=== PATIENT | female | born 1955 | race Caucasian/White ===

== ENCOUNTER 2016-06-02 17:14 | Observation (INO) | payer BC ==
--- NOTE | 2016-06-02 18:14 | ER Document Report ---
ED Medical Screen (RME) - General Stated Complaint: POSSIBLE SYNCOPE Notes: Her Mother Fall in Another Room and Went Back and Found Her Unresponsive. States Son Did CPR on Patient. Took pt in care to PCP, whose staff pulled her out of car and laid her on sidewalk. EMS then called to scene. Patient had pulses and good blood pressure at the scene. Transported to [facility] for evaluation. 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 Patient complains of pain to the head, neck, shoulders and back. I have greeted and performed a rapid initial assessment of this patient. A comprehensive ED assessment and evaluation of the patient, analysis of test results and completion of the medical decision making process will be conducted by additional ED providers. - Related Data Allergies/Adverse Reactions: ciprofloxacin [From Cipro] Allergy (Verified 06/02/16 18:15) codeine Allergy (Verified 06/02/16 18:15) morphine Allergy (Verified 06/02/16 18:15) Penicillins Allergy (Verified 06/02/16 18:15) Sulfa (Sulfonamide Antibiotics) Allergy (Verified 06/02/16 18:15) Physical Exam - Vital signs Vitals: Temp Pulse Resp BP Pulse Ox 98.1 F 75 18 102/61 96 06/02/16 18:00 06/02/16 18:00 06/02/16 18:00 06/02/16 18:00 06/02/16 18:00 - HEENT Head: Normocephalic Eyes: Normal Extraocular movements intact: Yes Pupils: PERRL Course - Vital Signs Vital signs: Temp Pulse Resp BP Pulse Ox 98.1 F 75 18 102/61 96 06/02/16 18:00 06/02/16 18:00 06/02/16 18:00 06/02/16 18:00 06/02/16 18:00
--- NOTE | 2016-06-02 19:09 | ER Document Report ---
ED Syncope and Near Syncope - General Chief Complaint: Probable Seizure Stated Complaint: POSSIBLE SYNCOPE Time Seen by Provider: 06/02/16 18:07 Mode of Arrival: Medic Information source: Patient, Relative - son Notes: 60 yo smoker female was in the closet folding and putting away clothes when her son heard a loud crash. She was face down on the floor. He rolled her over, she was pale and bluish color, he gave mouth to mouth, and when he started chest compression she recoiled but was not fully conscious. Next thing she remembers she was on the sofa. she had had episodes like this in the past and was told that she had "brain circuit problem, low bp" Had MRI in [facility]. MOved here 3 months ago. Also c/o chronic neck, upper back pain, anxiety, and exertional retrosternal chest pain that lasts up to an hour when she tries to do anything around the house, resolves when she lays down to rest. TRAVEL OUTSIDE OF THE [place] IN LAST 30 DAYS: No - Related Data Allergies/Adverse Reactions: ciprofloxacin [From Cipro] Allergy (Verified 06/02/16 18:15) codeine Allergy (Verified 06/02/16 18:15) morphine Allergy (Verified 06/02/16 18:15) Penicillins Allergy (Verified 06/02/16 18:15) Sulfa (Sulfonamide Antibiotics) Allergy (Verified 06/02/16 18:15) Home Medications: Current Home Medications Acyclovir [Acyclovir 400 mg Tablet] 1 tab PO BID 06/03/16 [History] Duloxetine HCl [Cymbalta] 1 tab PO DAILY 06/03/16 [History] Estropipate 3 mg PO DAILY 06/03/16 [History] Midodrine HCl [Proamatine 5 Mg Tablet] 5 mg PO BID 06/03/16 [History] Trazodone HCl [Desyrel] 100 mg PO DAILY 06/03/16 [History] Past Medical History - General Information source: Patient - Social History Smoking Status: Current Every Day Smoker Chew tobacco use (# tins/day): No Frequency of alcohol use: Rare Drug Abuse: None Lives with: Spouse/Significant other Family History: Reviewed & Not Pertinent Patient has suicidal ideation: No Patient has homicidal ideation: No Renal/ Medical History: Denies: Hx Peritoneal Dialysis Psychiatric Medical History: Reports: Hx Anxiety Surgical Hx: Negative Review of Systems - Review of Systems Constitutional: No symptoms reported EENT: No symptoms reported Cardiovascular: See HPI Respiratory: No symptoms reported Gastrointestinal: No symptoms reported Genitourinary: No symptoms reported Female Genitourinary: No symptoms reported Musculoskeletal: No symptoms reported Skin: No symptoms reported Hematologic/Lymphatic: No symptoms reported Neurological/Psychological: See HPI Physical Exam - Vital signs Vitals: Temp Pulse Resp BP Pulse Ox 98.1 F 75 18 102/61 96 06/02/16 18:00 06/02/16 18:00 06/02/16 18:00 06/02/16 18:00 06/02/16 18:00 Interpretation: Normal - General General appearance: Appears well, Alert In distress: None - HEENT Head: Normocephalic, Atraumatic Eyes: Normal Extraocular movements intact: Yes Pupils: PERRL Tympanic membrane: Normal Pharynx: Normal Neck: Supple - non tender - Respiratory Respiratory status: No respiratory distress Chest status: Nontender Breath sounds: Normal Chest palpation: Normal - Cardiovascular Rhythm: Regular Heart sounds: Normal auscultation Murmur: No - Abdominal Inspection: Normal Distension: No distension Bowel sounds: Normal Tenderness: Nontender. No: Tender Organomegaly: No organomegaly - Back Back: Normal, Nontender. No: CVA tenderness - Extremities General upper extremity: Normal inspection, Nontender, Normal color, Normal ROM , Normal temperature General lower extremity: Normal inspection, Nontender, Normal color, Normal ROM , Normal temperature, Normal weight bearing. No: Blair's sign - Neurological Neuro grossly intact: Yes Cognition: Normal Orientation: AAOx4 Haiku Coma Scale Eye Opening: Spontaneous Moris Coma Scale Verbal: Oriented Moris Coma Scale Motor: Obeys Commands Haiku Coma Scale Total: 15 Speech: Normal Motor strength normal: LUE, RUE, LLE, RLE Sensory: Normal - Psychological Associated symptoms: Normal affect, Normal mood - Skin Skin Temperature: Warm Skin Moisture: Dry Skin Color: Normal Skin irregularity: negative: Rash Course - Re-evaluation Re-evalutation: 06/02/16 19:[address] barkley for adding head CT and other work up. 06/02/16 22:[address] barkley, pt is c/o persistant RICO, now has chest heaviness, d dimer added. vitals stable at this time. meds ordered for the generalized back, neck and headache. 06/02/16 22:14 Patient relates that this chest heaviness has been intermittent sporadically for a month. The episodes last for 15-20 minutes, it is retrosternal, and she has to lay down to make it go away. It usually starts when she is up doing activities like sweeping or putting dishes up. The neck and back pain that she has she is asking medication for this time is chronic. 06/02/16 22:[address] Barkley, the second troponin and d-dimer results and I will call to get the patient admitted for syncope and chest pain. 06/02/16 23:07 2nd troponin have not been drawn. lab here and will draw for me. 06/03/16 01:[address] ya for admission chest pain, syncope. telemetry/observation., - Vital Signs Vital signs: Temp Pulse Resp BP Pulse Ox 97.5 F 79 18 103/57 L 96 06/03/16 04:42 06/03/16 04:42 06/03/16 04:42 06/03/16 04:42 06/03/16 04:42 - Laboratory Result Diagrams: 06/02/16 19:15 06/02/16 19:15 Laboratory results interpreted by me: 06/02/16 06/02/16 06/02/16 19:15 19:15 23:45 D-Dimer 0.51 H Creatine Kinase 24 L 29 L Total Protein 6.1 L Discharge - Discharge Clinical Impression: Upper back pain Syncope Qualifiers: Syncope type: unspecified Qualified Code(s): R55 - Syncope and collapse Chest pain Qualifiers: Chest pain type: other chest pain Qualified Code(s): R07.89 - Other chest pain Headache Qualifiers: Headache type: unspecified Headache chronicity pattern: unspecified pattern Intractability: not intractable Qualified Code(s): R51 - Headache Condition: Stable Disposition: HOME, SELF-CARE Admitting Provider: Hospitalist Unit Admitted: Telemetry
[2016-06-02] MEDS ORDERED: NORMAL SALINE 1000 ML 1,000 ML IV ONE (19:31)
[2016-06-02 19:35] LABS: ABSOLUTE BASOPHILS # (AUTO) 0.1 10^3/uL (0.0-0.2); ABSOLUTE EOSINOPHILS # (AUTO) 0.2 10^3/uL (0.0-0.6); ABSOLUTE LYMPHOCYTES (AUTO) 3.4 10^3/uL (0.5-4.7); ABSOLUTE MONOCYTES (AUTO) 0.7 10^3/uL (0.1-1.4); ABSOLUTE NEUT (AUTO) 4.3 10^3/uL (1.7-8.2); BASOPHILS % (AUTO) 0.7 % (0-2); EOSINOPHILS % (AUTO) 2.7 % (0-6); HEMATOCRIT 38.6 % (36.0-47.0); HGB HCT DIFFERENCE 0.4; LYMPHOCYTES % (AUTO) 39.2 % (13-45); MEAN CORPUSCULAR HEMOGLOBIN 28.5 pg (27.0-33.4); MEAN CORPUSCULAR HGB CONC 33.6 g/dL (32.0-36.0); MEAN CORPUSCULAR VOLUME 85 fl (80-97); MONOCYTES % (AUTO) 7.7 % (3-13); RED BLOOD COUNT 4.54 10^6/uL (3.72-5.28); RED CELL DISTRIBUTION WIDTH 13.2 % (11.5-14.0); SEGMENTED NEUTROPHILS % (AUTO) 49.7 % (42-78); WHITE BLOOD COUNT 8.6 10^3/uL (4.0-10.5)
[2016-06-02 19:57] LABS: ALANINE AMINOTRANSFERASE 26 U/L (9-52); ALBUMIN 3.5 g/dL (3.5-5.0); ALKALINE PHOSPHATASE 108 U/L (38-126); ANION GAP 9 (5-19); ASPARTATE AMINO TRANSFERASE 15 U/L (14-36); BILIRUBIN,TOTAL 0.3 mg/dL (0.2-1.3); BLOOD UREA NITROGEN 10 mg/dL (7-20); CALCIUM 9.8 mg/dL (8.4-10.2); CARBON DIOXIDE 29 mmol/L (22-30); CHLORIDE 102 mmol/L (98-107); CREATINE KINASE 24 U/L (30-135); CREATININE RESULT 0.75 mg/dL (0.52-1.25); GLUCOSE 90 mg/dL (75-110); LIPASE 80.7 U/L (23-300); POTASSIUM 4.5 mmol/L (3.6-5.0); SODIUM 139.9 mmol/L (137-145); TOTAL PROTEIN 6.1 g/dL (6.3-8.2)
[2016-06-02 19:59] LABS: ALCOHOL < 10 mg/dL (NONE DETECTED)
[2016-06-02 20:31] LABS: CREATINE KINASE MB < 0.22 ng/mL (<4.55); TROPONIN I < 0.012 ng/mL
[2016-06-02 21:34] LABS: APPEARANCE,URINE SLIGHTLY-CLOUDY; BILIRUBIN,URINE NEGATIVE (NEGATIVE); GLUCOSE, URINE NEGATIVE (NEGATIVE); KETONES,URINE NEGATIVE (NEGATIVE); LEUKOCYTE ESTERASE,URINE NEGATIVE (NEGATIVE); NITRITE,URINE NEGATIVE (NEGATIVE); PROTEIN,URINE NEGATIVE (NEGATIVE); URINE SPECIFIC GRAVITY 1.012; UROBILINOGEN,URINE NEGATIVE mg/dL (<2.0)
[2016-06-02 21:58] LABS: URINE BARBITURATES SCREEN NEGATIVE; URINE METHADONE SCREEN NEGATIVE; URINE OPIATES LOW NEGATIVE; URINE PHENCYCLIDINE SCREEN NEGATIVE
[2016-06-02] MEDS ORDERED: KETOROLAC TROMETHAMINE INJ/PF 30 MG/1 ML SDV IV ONE (22:06)
[2016-06-02] MEDS ORDERED: DIPHENHYDRAMINE HCL 50 MG/ML VIAL IV ONE (22:07)
[2016-06-02] MEDS ORDERED: PROCHLORPERAZINE EDISYLATE INJ 10 MG/2 ML VIAL IV ONE (22:07)
[2016-06-02] MEDS ORDERED: ASPIRIN 81 MG TABLET, CHEWABLE PO ONE (22:17)
[2016-06-03] MEDS ORDERED: LACTULOSE SYRUP 20 GM/30 ML UDCUP PO ONE (01:37)
[2016-06-03] MEDS ORDERED: HALOPERIDOL LACTATE INJ 5 MG/1 ML VIAL IV PRN (01:37)
[2016-06-03] MEDS ORDERED: IPRATROPIUM/ALBUTEROL 0.5-2.5 MG/3 ML AMPUL NEB PRN (02:36)
[2016-06-03] MEDS ORDERED: ACETAMINOPHEN 325 MG TABLET PO PRN (02:36)
[2016-06-03 04:57] VITALS: BP 103/57
[2016-06-03] MEDS ORDERED: HEPARIN SOD (PORCINE) 5,000 UNIT/ML 1 ML SYRINGE SUBCUT SCH (06:00)
[2016-06-03] MEDS ORDERED: DULOXETINE HCL PO SCH (10:00)
[2016-06-03] MEDS ORDERED: MIDODRINE HCL 5 MG TABLET PO SCH (10:00)
--- NOTE | 2016-06-03 16:05 | EKG REPORT ---
SEVERITY:- NORMAL ECG - SINUS RHYTHM : Confirmed by: Sunshine Crespo MD 03-Jun-2016 16:04:35
[2016-06-03] MEDS ORDERED: DULOXETINE HCL 30 MG CAPSULE.DR PO SCH (22:00)
== END 2016-06-03 04:43 | disposition home or self-care (01) ==
LOC: ER 17:14 → EH 06-03 01:56 → UNDOADMOB 06-03 01:56 → EH 06-03 02:36
PROVIDERS: ADMIT Internal Medicine; ATTEND Internal Medicine
DX: R55 Syncope and collapse (principal); R07.9 Chest pain, unspecified; R51 Headache; F17.200 Nicotine dependence, unspecified, uncomplicated
CPT/HCPCS: 93005; 99281; 96374; 96375; 36415 ×2; 87086; 82553 ×2; 80307 ×2; 82550 ×2; 83690; 85025; 87088; 80053; 81001; 84484; 85379; 71020; 70450; 71275; 93010; G0378; J1200; J1630; J1885; J0780; J7030

== ENCOUNTER → 2016-08-01 | Outpatient (CLI) | payer BC | LOC: WI 13:16 | PROVIDERS: ATTEND Physician Assistant Medical | DX: N63 Unspecified lump in breast (principal); Z53.8 Procedure and treatment not carried out for other reasons ==